=== PATIENT | male | born 1940 | race Caucasian/White ===

== ENCOUNTER → 2018-10-01 08:45 | Outpatient (CLI) | payer MEDICARE, SELFPAY ==
--- NOTE | 2018-10-01 | DI.US.S_ITS ---
PROCEDURE: US ABD AORTA ANEURYSM SCREEN INDICATIONS: AAA SCREEN TECHNIQUE: Real time scanning was performed of the aorta and iliac arteries, with image documentation. COMPARISON: [facility], , US ABDOMEN, 02/10/2003, 11:16. FINDINGS: Aorta: Proximal aortic diameter measures 2.1 cm. Mid-aorta measures 2 cm. Distal aortic diameter is 1.8 cm. Iliac arteries: Right common iliac artery measures 1.2 cm. Left common iliac artery measures 1.5 cm. IMPRESSION: Negative for aneurysm. Dictated by: Ramakrishna Adrian M.D. on 10/01/2018 at 8:58 Approved by: Ramakrishna Adrian M.D. on 10/01/2018 at 8:58
== END ==
PROVIDERS: PCP Family Medicine; Visit Provider Family Medicine
DX: Z13.6 Encounter for screening for cardiovascular disorders (principal)
CPT/HCPCS: 76706

== ENCOUNTER → 2018-12-19 10:56 | Outpatient (CLI) | payer MEDICARE, SELFPAY ==
--- NOTE | 2018-12-19 | DI.CT.S_ITS ---
PROCEDURE: CT ABDOMEN W CON INDICATIONS: symptoms and signs involving the digestive system TECHNIQUE: After the administration of oral and intravenous contrast, 5 mm thick sections acquired from the diaphragms to the iliac crests. 5 mm thick coronal and sagittal reformats were acquired. For radiation dose reduction, the following was used: automated exposure control, adjustment of mA and/or kV according to patient size. COMPARISON: None. FINDINGS: Image quality: Excellent. Lung bases: Lung bases are clear except for minimal scarring posterior left costophrenic sulcus inferiorly. Heart size is normal. Solid organs: Liver is normal in size and enhancement. Gallbladder appears absent or fully contracted, and is not seen as a discrete entity. Metallic surgical clips at the gallbladder fossa are not found.. Biliary system is non dilated. Pancreas enhances normally. Spleen is normal in size and enhancement. No adrenal nodules. Kidneys are normal in size, without hydronephrosis. Peritoneum and bowel: Contrast enhanced bowel loops appear normal in caliber. No free fluid or air. Nodes and vessels: No retroperitoneal or mesenteric adenopathy by size criteria. Aorta and inferior vena cava are normal in size. Bones: No suspicious bony lesions. No vertebral body compression fractures. Miscellaneous: No ventral hernias. IMPRESSION: Source of current symptoms is not seen. The gallbladder may be surgically absent and is not visualized. It is possible that the gallbladder was resected without use of metallic surgical clips. No biliary distention is found. 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 Dictated by: Gonzales Clinton M.D. on 12/19/2018 at 14:14 Approved by: Gonzales Clinton M.D. on 12/19/2018 at 14:17
[2018-12-19 11:29] LABS: Alanine Aminotransferase 40 IU/L (21-72); Albumin 4.8 g/dL (3.5-5.0); Albumin Globulin Ratio 1.7 (1.0-2.8); Alkaline Phosphatase 81 U/L (38-126); Aspartate Aminotransferase 31 IU/L (17-59); BUN Creatinine Ratio 26.7 (6-22); Bilirubin Total 1.1 mg/dL (0.2-1.3); Blood Urea Nitrogen 24 mg/dL (9-20); Calcium 9.7 mg/dL (8.4-10.2); Carbon Dioxide 28 mmol/L (22-32); Chloride 99 mmol/L (98-107); Estimated Glomerular Filt Rate > 60.0 mL/min (>60); Globulin 2.8 g/dL (1.7-4.1); Glucose 157 mg/dL (80-110); HEMOLYSIS < 15 (0-50); Sodium 138 mmol/L (137-145); Total Protein 7.6 g/dL (6.3-8.2)
== END ==
PROVIDERS: PCP Family Medicine; Visit Provider Family Medicine
DX: R19.8 Other specified symptoms and signs involving the digestive system and abdomen (principal)
CPT/HCPCS: 36415; 74160; 80053; Q9967

== ENCOUNTER → 2019-01-09 13:49 | Outpatient (CLI) | payer MEDICARE, SELFPAY ==
--- NOTE | 2019-01-09 | DI.ECHO.S_ITS ---
[facility]---------+ [facility] +---------+ : : [address] : : : : [place] : : : : [id number] : : : : Phone: [phone]+ Echocardiogram Report + + :Name: YASSINE SIERRA Study Date: 01/09/2019 Height: 75 in : :[facility] Weight: 230 lb : : Gender: Male BSA: 2.3 m2 : :: 1940 Age: 78 yrs BP: 140/70 mmHg: :Reason For Study: Abnormal ECG : : Performed By: Ashli Kovacs : :Referring: FRANCE RIOS D : + + Interpretation Summary The left ventricle is normal in size, wall thickness, and systolic function without any focal wall motion abnormalities. The ejection fraction is estimated to be 60-65%. The right ventricle grossly appears normal in size with probable normal systolic function. The left atrial size is normal. Right atrial size is normal. There is no significant valvular heart disease. The aortic root is mildly dilated. The ascending aorta is mildly enlarged. The aortic arch is mildly enlarged. Procedure: A two-dimensional transthoracic echocardiogram with color flow and Doppler was performed. The study quality was technically adequate. There is no prior echocardiogram noted for this patient. The patient was in normal sinus rhythm during the exam. Left Ventricle: The left ventricle is normal in size, wall thickness, and systolic function without any focal wall motion abnormalities. The ejection fraction is estimated to be 60-65%. Right Ventricle: The right ventricle grossly appears normal in size with probable normal systolic function. Atria: The left atrial size is normal. Right atrial size is normal. Mitral Valve: The mitral valve is normal in structure and function. There is no mitral regurgitation noted. Aortic Valve: The aortic valve opens well. No aortic regurgitation is present. Tricuspid Valve: The tricuspid valve is normal in structure and function. There is a trace or physiologic amount of tricuspid regurgitation. Pulmonic Valve: The pulmonic valve is not well seen, but is grossly normal. There is trace pulmonic regurgitation. There is no significant valvular heart disease. Great Vessels: The aortic root is mildly dilated. The ascending aorta is mildly enlarged. The aortic arch is mildly enlarged. The inferior vena cava was not visualized. Pericardium/ Pleura There is no pericardial effusion. There is no pleural effusion. MMode/2D Measurements & Calculations LVIDd: 4.9 cm Ao root diam: 4.0 cm LVIDs: 2.6 cm Aortic Jxn: 3.3 cm FS: 45.8 % asc Aorta Diam: 3.9 cm EPSS: 0.60 cm Ao Arch Diam (Prox Trans): 3.6 cm IVSd: 0.99 cm LVPWd: 0.92 cm LV cramer. diameter/BSA (cm/m^2): 2.1 LV sys. diameter/BSA (cm/m^2): 1.1 LA A2 area: 23.9 cm2 RA long axis: 5.5 cm LA A4 area: 20.6 cm2 RA area: 22.6 cm2 LA length (vol): 6.7 cm RA vol: 78.7 ml LA vol: 62.0 ml RA : 33.8 ml/m2 LA vol index: 26.6 ml/m2 Doppler Measurements & Calculations Ao V2 max: 178.8 cm/sec MV P1/2t: 94.8 msec Ao V2 mean: 102.9 cm/sec Ao max P.8 mmHg Ao mean P.3 mmHg Ao V2 VTI: 35.4 cm TR max liliana: 263.8 cm/sec MV P1/2t max liliana: 61.5 cm/sec TR max P.8 mmHg MVA(P1/2t): 2.3 cm2 PA V2 max: 83.3 cm/sec PA V2 mean: 54.3 cm/sec PA mean P.4 mmHg PA Accel Time: 0.13 sec Reading Physician:05:[id number] PM
--- NOTE | 2019-01-09 16:00 | PM.TREADMILL ---
Cardiac Stress Test Report Referral & Results Date Patient Seen: 01/09/19 Requesting provider: Brett Donis Indication: Abnormal ECG Rest ECG: Poor R progression across precordium and nonspecific interventricular conduction delay Procedure Note: Today following both written and verbal informed consent, the patient was exercised according to a standard Gregory protocol. The patient exercised for a total of 7 minutes 24 seconds achieving a maximum heart rate of 149. Patient's maximum systolic blood pressure was 190. This was an estimated 10.1 MET's. There are no ST-T segment changes Normal heart rate and blood pressure response to exercise Functional aerobic impairment rates-20% on the active scale Rare PVC identified Impression: No ECG evidence of ischemia Excellent exercise capacity Please note: Actual ECG tracings can be found in the PACS system.
== END ==
PROVIDERS: PCP Family Medicine; Visit Provider Family Medicine
DX: R94.31 Abnormal electrocardiogram [ECG] [EKG] (principal); I77.89 Other specified disorders of arteries and arterioles; E11.8 Type 2 diabetes mellitus with unspecified complications
CPT/HCPCS: 93016; 93017; 93018; 93306

== ENCOUNTER → 2020-10-13 10:02 | Outpatient (CLI) | payer MEDICARE, SELFPAY ==
[2020-10-15 08:43] LABS: PSA Free % 12.4 % (.); PSA, Total 4.5 ng/mL (0.0-4.0)
== END ==
PROVIDERS: PCP Family Medicine; Visit Provider Family Medicine
DX: R97.20 Elevated prostate specific antigen [PSA] (principal)
CPT/HCPCS: 84153; 84154

== ENCOUNTER → 2021-09-05 11:37 | Outpatient (CLI) | payer MEDICARE, SELFPAY ==
[2021-09-05 19:12] LABS: Hematocrit 43.1 % (41-53); Hemoglobin 14.7 g/dL (13.5-17.5); Mean Corpuscular Hemoglobin 29.6 PG (26-34); Mean Corpuscular Volume 86.9 fL (80-100); Platelet Count 207 X10^3/uL (150-400); Red Blood Cell Count 4.96 X10^6/uL (4.5-5.9); Red Cell Distribution Width 13.1 % (11.6-14.8); White Blood Cell Count 5.2 X10^3/uL (4.5-11.0)
[2021-09-05 19:23] LABS: Cholesterol 165 mg/dL (140-199); HDL Cholesterol 43 mg/dL (40-60); LDL Cholesterol Calculated 102 mg/dL (<100); Triglycerides 99 mg/dL (35-150)
[2021-09-05 19:45] LABS: Neutrophils Absolute Manual 3068 /uL (3000-5900); Total Cells Counted 100
[2021-09-05 19:46] LABS: Microcytosis 2+; Smudge Cells 2+
[2021-09-05 19:54] LABS: Prostate Specific Antigen 3.12 ng/mL (0.10-4.00)
[2021-09-05 21:54] LABS: Hemoglobin A1C% w Est Avg Glu 5.7 % (4.0-6.0)
== END ==
PROVIDERS: PCP Family Medicine; Visit Provider Family Medicine
DX: E11.49 Type 2 diabetes mellitus with other diabetic neurological complication (principal); R97.20 Elevated prostate specific antigen [PSA]; E78.2 Mixed hyperlipidemia
CPT/HCPCS: 80061; 83036; 84153; 85025

== ENCOUNTER → 2021-12-18 13:07 | Outpatient (CLI) | payer MEDICARE, SELFPAY ==
[2021-12-18 19:34] LABS: Hematocrit 41.4 % (41-53); Hemoglobin 14.4 g/dL (13.5-17.5); Mean Corpuscular HGB Conc 34.8 % (30-36); Mean Corpuscular Hemoglobin 29.6 PG (26-34); Platelet Count 175 X10^3/uL (150-400); Red Blood Cell Count 4.87 X10^6/uL (4.5-5.9); White Blood Cell Count 7.1 X10^3/uL (4.5-11.0)
[2021-12-18 20:20] LABS: Neutrophils Absolute Manual 4544 /uL (3000-5900); Platelet Estimate Adequate on smear; RBC Morphology Normal Morphology; Total Cells Counted 100
== END ==
PROVIDERS: PCP Family Medicine; Visit Provider Family Medicine
DX: D72.89 Other specified disorders of white blood cells (principal)
CPT/HCPCS: 85025

== ENCOUNTER → 2022-09-04 08:24 | Outpatient (CLI) | payer MEDICARE, SELFPAY ==
[2022-09-04 19:59] LABS: Add Manual Diff / Slide Review NO; Basophils Absolute Auto 0 /uL (0-100); Basophils Percent Auto 0.5 % (0-2); Eosinophils Absolute Auto 200 /uL (0-450); Eosinophils Percent Auto 4.1 % (2-4); Hematocrit 40.7 % (41-53); Hemoglobin 13.9 g/dL (13.5-17.5); Lymphocytes Absolute Auto 1200 /uL (1100-4500); Lymphocytes Percent Auto 22.1 % (25-40); Mean Corpuscular Hemoglobin 28.7 PG (26-34); Mean Corpuscular Volume 84.3 fL (80-100); Monocytes Absolute Auto 500 /uL (0-900); Monocytes Percent Auto 10.1 % (3-14); Neutrophils Absolute Auto 3300 /uL (1500-7000); Neutrophils Percent Auto 63.2 % (50-75); Platelet Count 162 X10^3/uL (150-400); Red Blood Cell Count 4.83 X10^6/uL (4.5-5.9); Red Cell Distribution Width 13.6 % (11.6-14.8); White Blood Cell Count 5.3 X10^3/uL (4.5-11.0)
[2022-09-04 20:08] LABS: BUN Creatinine Ratio 26.4 (6-22); Blood Urea Nitrogen 19 mg/dL (9-20); Calcium 8.8 mg/dL (8.4-10.2); Carbon Dioxide 25 mmol/L (22-32); Chloride 104 mmol/L (98-107); Cholesterol 124 mg/dL (140-199); Estimated Glomerular Filt Rate > 60 mL/min (>60); Glucose 140 mg/dL (80-110); HDL Cholesterol 55 mg/dL (40-60); LDL Cholesterol Calculated 57 mg/dL (<100); Potassium 4.2 mmol/L (3.4-5.1); Sodium 136 mmol/L (137-145); Triglycerides 60 mg/dL (35-150)
[2022-09-04 20:10] LABS: HEMOLYSIS 51 (0-50)
[2022-09-04 20:30] LABS: Prostate Specific Antigen Scrn 2.02 ng/mL (0.1-4.0)
[2022-09-05 22:07] LABS: x Labcorp Estim. Avg Glu (eAG) 120 mg/dL (.); x Labcorp Hemoglobin A1c 5.8 % (4.8-5.6)
== END ==
PROVIDERS: PCP Family Medicine; Visit Provider Family Medicine
DX: E11.49 Type 2 diabetes mellitus with other diabetic neurological complication (principal); E78.2 Mixed hyperlipidemia; I10 Essential (primary) hypertension; R97.20 Elevated prostate specific antigen [PSA]; Z12.5 Encounter for screening for malignant neoplasm of prostate
CPT/HCPCS: 80048; 80061; 83036; 85025; G0103

== ENCOUNTER → 2022-09-10 09:34 | Outpatient (CLI) | payer MEDICARE, SELFPAY ==
[2022-09-10 22:45] LABS: Creatinine Urine Random 124.6 mg/dL
[2022-09-10 22:53] LABS: Microalbumi Creatinin Ratio Ur 32.1 ug/mg CR (<30)
== END ==
PROVIDERS: PCP Family Medicine; Visit Provider Family Medicine
DX: E11.49 Type 2 diabetes mellitus with other diabetic neurological complication (principal); I10 Essential (primary) hypertension; E78.2 Mixed hyperlipidemia; R97.20 Elevated prostate specific antigen [PSA]
CPT/HCPCS: 82043; 82570

== ENCOUNTER → 2023-01-08 13:59 | Outpatient (CLI) | payer MEDICARE, SELFPAY ==
[2023-01-08 19:52] LABS: HEMOLYSIS < 15 (0-50)
[2023-01-08 19:56] LABS: Add Manual Diff / Slide Review NO; Basophils Absolute Auto 0 /uL (0-100); Basophils Percent Auto 0.5 % (0-2); Eosinophils Absolute Auto 200 /uL (0-450); Eosinophils Percent Auto 4.1 % (2-4); Hematocrit 41.4 % (41-53); Lymphocytes Absolute Auto 1500 /uL (1100-4500); Lymphocytes Percent Auto 26.3 % (25-40); Mean Corpuscular HGB Conc 33.8 % (30-36); Mean Corpuscular Volume 85.6 fL (80-100); Monocytes Absolute Auto 500 /uL (0-900); Monocytes Percent Auto 8.4 % (3-14); Neutrophils Absolute Auto 3500 /uL (1500-7000); Neutrophils Percent Auto 60.7 % (50-75); Platelet Count 168 X10^3/uL (150-400); Red Blood Cell Count 4.84 X10^6/uL (4.5-5.9); Red Cell Distribution Width 14.5 % (11.6-14.8); White Blood Cell Count 5.8 X10^3/uL (4.5-11.0)
[2023-01-08 19:57] LABS: BUN Creatinine Ratio 21.3 (6-22); Blood Urea Nitrogen 17 mg/dL (9-20); Calcium 9.3 mg/dL (8.4-10.2); Carbon Dioxide 26 mmol/L (22-32); Chloride 101 mmol/L (98-107); Estimated Glomerular Filt Rate > 60 mL/min (>60); Glucose 117 mg/dL (80-110); Potassium 4.2 mmol/L (3.4-5.1); Sodium 136 mmol/L (137-145)
[2023-01-08 20:03] LABS: Hemoglobin A1C% w Est Avg Glu 5.6 % (4.0-6.0)
[2023-01-08 20:29] LABS: Prostate Specific Antigen Scrn 2.06 ng/mL (0.1-4.0)
== END ==
PROVIDERS: PCP Family Medicine; Visit Provider Family Medicine
DX: R80.1 Persistent proteinuria, unspecified (principal); Z12.5 Encounter for screening for malignant neoplasm of prostate; E11.49 Type 2 diabetes mellitus with other diabetic neurological complication; E78.2 Mixed hyperlipidemia; G62.9 Polyneuropathy, unspecified; I10 Essential (primary) hypertension; N13.8 Other obstructive and reflux uropathy; N13.9 Obstructive and reflux uropathy, unspecified; N40.1 Benign prostatic hyperplasia with lower urinary tract symptoms; R97.20 Elevated prostate specific antigen [PSA]; R80.9 Proteinuria, unspecified
CPT/HCPCS: 80048; 83036; 85025; G0103

== ENCOUNTER → 2023-01-11 10:28 | Outpatient (CLI) | payer MEDICARE, SELFPAY ==
[2023-01-11 18:25] LABS: Creatinine Urine Random 136.4 mg/dL
[2023-01-11 18:36] LABS: Microalbumi Creatinin Ratio Ur 15.3 ug/mg CR (<30); Microalbumin Urine Random 2.1 mg/dL (0-1.6)
== END ==
PROVIDERS: PCP Family Medicine; Visit Provider Family Medicine
DX: I10 Essential (primary) hypertension (principal); R80.9 Proteinuria, unspecified; E11.49 Type 2 diabetes mellitus with other diabetic neurological complication; N40.1 Benign prostatic hyperplasia with lower urinary tract symptoms; N13.8 Other obstructive and reflux uropathy
CPT/HCPCS: 82043; 82570

== ENCOUNTER → 2023-09-30 10:54 | Outpatient (CLI) | payer MEDICARE, SELFPAY ==
[2023-09-30 20:04] LABS: Add Manual Diff / Slide Review NO; Basophils Absolute Auto 0 /uL (0-100); Basophils Percent Auto 0.5 % (0-2); Eosinophils Absolute Auto 200 /uL (0-450); Eosinophils Percent Auto 3.8 % (2-4); Hematocrit 42.9 % (41-53); Hemoglobin 14.6 g/dL (13.5-17.5); Lymphocytes Absolute Auto 1400 /uL (1100-4500); Lymphocytes Percent Auto 26.6 % (25-40); Mean Corpuscular HGB Conc 34.1 % (30-36); Mean Corpuscular Hemoglobin 29.3 PG (26-34); Monocytes Absolute Auto 500 /uL (0-900); Monocytes Percent Auto 8.5 % (3-14); Neutrophils Absolute Auto 3200 /uL (1500-7000); Neutrophils Percent Auto 60.6 % (50-75); Platelet Count 175 X10^3/uL (150-400); Red Blood Cell Count 4.98 X10^6/uL (4.5-5.9); Red Cell Distribution Width 13.4 % (11.6-14.8); White Blood Cell Count 5.3 X10^3/uL (4.5-11.0)
[2023-09-30 20:17] LABS: BUN Creatinine Ratio 25.9 (6-22); Blood Urea Nitrogen 21 mg/dL (9-20); Calcium 8.9 mg/dL (8.4-10.2); Carbon Dioxide 27 mmol/L (22-32); Chloride 104 mmol/L (98-107); Cholesterol 147 mg/dL (140-199); Estimated Glomerular Filt Rate > 60 mL/min (>60); Glucose 142 mg/dL (80-110); HDL Cholesterol 55 mg/dL (40-60); HEMOLYSIS < 15 (0-50); LDL Cholesterol Calculated 71 mg/dL (<100); Potassium 4.1 mmol/L (3.4-5.1); Sodium 137 mmol/L (137-145); Triglycerides 103 mg/dL (35-150)
[2023-09-30 20:47] LABS: TSH w/ Reflex to FT4 1.69 uIU/mL (0.47-4.68)
[2023-09-30 20:54] LABS: Hemoglobin A1C% w Est Avg Glu 5.9 % (4.0-6.0)
[2023-09-30 20:55] LABS: Creatinine Urine Random 78.1 mg/dL
[2023-09-30 20:57] LABS: Microalbumi Creatinin Ratio Ur 28.1 ug/mg CR (<30); Microalbumin Urine Random 2.2 mg/dL (0-1.6)
== END ==
PROVIDERS: PCP Family Medicine; Visit Provider Family Medicine
DX: R97.20 Elevated prostate specific antigen [PSA] (principal); E11.49 Type 2 diabetes mellitus with other diabetic neurological complication; R80.9 Proteinuria, unspecified; N40.1 Benign prostatic hyperplasia with lower urinary tract symptoms; N13.8 Other obstructive and reflux uropathy; E78.2 Mixed hyperlipidemia; I10 Essential (primary) hypertension; G62.9 Polyneuropathy, unspecified
CPT/HCPCS: 80048; 80061; 82043; 82570; 83036; 84443; 85025

== ENCOUNTER → 2024-11-09 11:05 | Outpatient (CLI) | payer MEDICARE, SELFPAY ==
[2024-11-09 19:31] LABS: Add Manual Diff / Slide Review NO; Hematocrit 41.1 % (41-53); Hemoglobin 14.0 g/dL (13.5-17.5); Lymphocytes Absolute Auto 1300 /uL (1100-4500); Mean Corpuscular HGB Conc 34.1 % (30-36); Mean Corpuscular Hemoglobin 29.1 PG (26-34); Mean Corpuscular Volume 85.3 fL (80-100); Platelet Count 189 X10^3/uL (150-400)
[2024-11-09 19:38] LABS: Blood Urea Nitrogen 22 mg/dL (9-20); Calcium 9.7 mg/dL (8.4-10.2); Carbon Dioxide 26 mmol/L (22-32); Chloride 101 mmol/L (98-107); Cholesterol 147 mg/dL (140-199); Estimated Glomerular Filt Rate > 60 mL/min (>60); Glucose 117 mg/dL (70-99); HDL Cholesterol 56 mg/dL (40-60); HEMOLYSIS < 15 (0-50); Hemoglobin A1C% w Est Avg Glu 5.8 % (4.0-6.0); Potassium 4.3 mmol/L (3.4-5.1); Sodium 135 mmol/L (137-145); Triglycerides 84 mg/dL (35-150)
[2024-11-09 20:06] LABS: Prostate Specific Antigen 0.329 ng/mL (0.10-4.00)
== END ==
PROVIDERS: PCP Family Medicine; Visit Provider Family Medicine
DX: E11.8 Type 2 diabetes mellitus with unspecified complications (principal); N13.9 Obstructive and reflux uropathy, unspecified; I10 Essential (primary) hypertension; R80.9 Proteinuria, unspecified; N40.1 Benign prostatic hyperplasia with lower urinary tract symptoms; N13.8 Other obstructive and reflux uropathy; R97.20 Elevated prostate specific antigen [PSA]; G62.9 Polyneuropathy, unspecified; E78.2 Mixed hyperlipidemia
CPT/HCPCS: 80048; 80061; 83036; 84153; 85025

== ENCOUNTER → 2024-11-10 13:17 | Outpatient (CLI) | payer MEDICARE, SELFPAY ==
[2024-11-10 20:30] LABS: Microalbumi Creatinin Ratio Ur 131.0 ug/mg CR (<30)
== END ==
PROVIDERS: PCP Family Medicine; Visit Provider Family Medicine
DX: E11.8 Type 2 diabetes mellitus with unspecified complications (principal); R80.1 Persistent proteinuria, unspecified
CPT/HCPCS: 82043; 82570

== ENCOUNTER → 2024-11-26 11:02 | Outpatient (CLI) | payer MEDICARE, SELFPAY | PROVIDERS: PCP Family Medicine; Visit Provider Family Medicine | DX: R30.0 Dysuria (principal) | CPT/HCPCS: 81002; 87086 ==

== ENCOUNTER → 2025-01-29 14:36 | Outpatient (CLI) | payer MEDICARE, SELFPAY ==
[2025-01-29 18:30] LABS: Microalbumi Creatinin Ratio Ur 44.0 ug/mg CR (<30)
== END ==
LOC: LAB 14:37
PROVIDERS: PCP Family Medicine; Visit Provider Family Medicine
DX: E11.8 Type 2 diabetes mellitus with unspecified complications (principal)
CPT/HCPCS: 82043; 82570